=== PATIENT | male | born 1990 | race Caucasian/White ===

== ENCOUNTER 2021-11-12 09:49 | Outpatient (REF) | payer SELFPAY ==
[2021-11-12 10:19] LABS: Binax Now Covid-19 Ag Positive (Negative)
[2021-11-12 10:20] LABS: Binax Internal Control QC Valid
== END 2021-11-12 09:50 | disposition home or self-care (01) ==
LOC: HO.LAB 09:49
PROVIDERS: Visit Provider Internal Medicine
DX: Z20.822 Contact with and (suspected) exposure to COVID-19 (principal)
CPT/HCPCS: C9803

== ENCOUNTER 2022-02-15 11:31 | Outpatient (REF) | payer SELFPAY ==
[2022-02-15 12:42] LABS: COVID-19 Test Negative (Negative); IDNOW Serial# 08D9AD1C
== END 2022-02-15 11:32 | disposition home or self-care (01) ==
LOC: HO.LAB 11:31
PROVIDERS: Visit Provider Internal Medicine
DX: Z20.822 Contact with and (suspected) exposure to COVID-19 (principal)
CPT/HCPCS: 87635; C9803